=== PATIENT | male | born 1955 | race Caucasian/White ===

== ENCOUNTER → 2017-05-16 | Outpatient (CLI) | payer OTHER ==
--- NOTE | 2017-05-16 17:35 | RAD ---
Left elbow, 2 views, 05/16/2017: History: Left elbow contusion No fracture or dislocation is identified. There is no radiographic evidence of a joint effusion. IMPRESSION: No acute left elbow abnormality is detected.
== END | disposition home or self-care (01) ==
LOC: PMG 15:02
PROVIDERS: ATTEND Physician Assistant
DX: S50.02XA Contusion of left elbow, initial encounter (principal); X58.XXXA Exposure to other specified factors, initial encounter; Y93.89 Activity, other specified; Y92.89 Other specified places as the place of occurrence of the external cause; Y99.8 Other external cause status
CPT/HCPCS: 73070